=== PATIENT | female | born 1975 | race Caucasian/White ===

== ENCOUNTER 2018-01-08 09:04 | Day surgery (SDC) | END 2018-01-08 17:31 | disposition home or self-care (01) ==

== ENCOUNTER 2018-11-20 15:10 | Emergency (ER) | payer OTHER ==
[~2018-11-20] VITALS: Ht 157.5 cm; Wt 69.6 kg
[~2018-11-20 15:10] MED LIST: EXCED PO; HYDR25TA6 PO; LOSA50TA14 PO; OMEP20CA16 PO
[2018-11-20 15:18] VITALS: BP 149/84; PULSE 76; RESP 17; Ht 157.5 cm; Wt 69.6 kg
--- NOTE | 2018-11-20 16:13 | EN ---
Date/Time of Note Date/Time of Note DATE: 11/20/18 TIME: 16:12 ER Progress Note [id number] female referred by primary doctor for evaluation for bilateral eye pain and symptoms consistent with tension headache. PMD requesting pressure check and visual acuity. ED 2 appropriate. BELLE RICHARDSON MD Nov 20, 2018 16:13
[2018-11-20] MEDS ORDERED: KETOROLAC 30 MG INJ IM STA (16:50)
[2018-11-20] MEDS ORDERED: TETRACAINE 0.5% 4 ML OPH BOTH EYES ONE (17:00)
--- NOTE | 2018-11-20 17:18 | ERD ---
ER Documentation Chief Complaint Chief Complaint BILAT EYE PAIN X2 WEEKS, SENT PER PMD FOR EVAL HPI 43-year-old female presents with headache that was gradual onset frontal bilateral behind the eyes is like a tightening around her head. No nausea or vomiting. She states she takes Motrin at home which does help. No blurry or changes to her vision. Primary care doctor sent her here to get a visual acuity and check her eye pressure ROS All systems reviewed and are negative except as per history of present illness. Medications Home Meds Active Scripts Acetaminophen/Aspirin/Caffeine* (Excedrin*) 1 Tab Tab, 1 TAB PO Q6, #20 TAB Prov:AP WU PA-C 11/20/18 Reported Medications Omeprazole* (Omeprazole*) 20 Mg Capsule.dr, 20 MG PO DAILY, #30 CAP 01/08/18 Hydrochlorothiazide* (Hydrochlorothiazide*) 25 Mg Tab, 25 MG PO DAILY, #30 TAB 01/08/18 Losartan Potassium* (Losartan Potassium*) 50 Mg Tablet, 50 MG PO DAILY, TAB 01/08/18 Allergies Allergies: Coded Allergies: banana (Verified Allergy, Mild, RASHES, 04/05/14) avocado (Verified Allergy, Unknown, 01/08/18) Uncoded Allergies: CANTALOUPE (Allergy, Mild, RASH, 07/03/12) WATERMELON (Allergy, Mild, RASH, 07/03/12) APPLES (Adverse Reaction, Intermediate, MOUTH ITCHES AND N/V/D, 01/08/18) PMhx/Soc History of Surgery: Yes (TONSILS,TWO C-SECTIONS/TUBES TIED) Anesthesia Reaction: No Hx Neurological Disorder: No Hx Respiratory Disorders: No Hx Cardiac Disorders: Yes (HTN, HIGH CHOL) Hx Psychiatric Problems: No Hx Miscellaneous Medical Probl: No Hx Alcohol Use: No Hx Substance Use: No Hx Tobacco Use: No Smoking Status: Never smoker FmHx Family History: No diabetes Physical Exam Vitals Vital Signs Date Temp Pulse Resp B/P (MAP) Pulse Ox O2 O2 Flow FiO2 Time Delivery Rate 11/20/18 97.6 76 17 149/84 97 15:18 (105) Physical Exam INITIAL VITAL SIGNS: Reviewed by me GENERAL: Awake, alert and oriented x 4, well appearing, nontoxic, speaking in full sentences. No acute distress HEAD: Atraumatic NECK: Supple. No masses. Full range of motion. No meningismus. No midline tenderness. EYES: EOMI. PERRL. Visual acuity within normal limits, intraocular pressure is 18 bilaterally EAR: No tenderness over the mastoids bilaterally. No exudates in the canals. TMs nonerythematous. NOSE: Normal nose. THROAT: No tonilar erythema or edema. No exudates. Uvula midline. No kissing tonsils. RESPIRATORY: Clear to auscultation bilaterally. Symmetric chest wall rise. No wheezing or rales. No accessory muscle use. CV: Regular rate and rhythm. No murmurs, rubs, or gallops. NEUROLOGIC: Normal mental status and speech. Face is symmetric. Moves all extremities equally. Motor and sensory distally intact. Normal coordination. Ambulates with a strong steady gait. Results 24 hrs Laboratory Tests Test 11/20/18 17:07 POC Beta HCG, Qualitative NEGATIVE Current Medications Medications Dose Sig/Amber Start Time Status Last (Trade) Ordered Route PRN Stop Time Admin Dose Reason Admin Ketorolac 30 mg ONCE STAT 11/20/18 DC Tromethamine IM 16:50 (Toradol) 11/20/18 16:52 Tetracaine 1 drop ONCE ONCE 11/20/18 DC HCl BOTH EYES 17:00 (Tetracaine 11/20/18 17:01 0.5% Steri-Unit Fabiola) Procedures/MDM Patient here with what is likely tension headache. She is neurologically intact. She plans to follow-up with eye doctor and with her primary care doctor. Patient counseled regarding my diagnostic impression and care plan. Prior to discharge all questions answered. Pt agrees with treatment plan and understands strict return precautions. Pt is instructed to follow up with primary care provider within 24-48 hours. Precautionary instructions provided including instructions to return to the ER if not improving or for any worsening or changing symptoms or concerns. Departure Diagnosis: Primary Impression: Headache Condition: Stable Patient Instructions: Self-Care for Headaches Additional Instructions: Call your primary care doctor TOMORROW for an appointment during the next 1-2 days.See the doctor sooner or return here if your condition worsens before your appointment time. AP WU PA-C Nov 20, 2018 17:18
== END 2018-11-20 17:21 | disposition home or self-care (01) ==
LOC: FTE 15:10
DX: R51 Headache (principal); I10 Essential (primary) hypertension
CPT/HCPCS: 81025; 96372; J1885; Z7502; Z7610